=== PATIENT | female | born 2000 | race Caucasian/White ===

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

== ENCOUNTER → 2018-02-02 | Outpatient (REF) | payer BC | LOC: M LAB REF 17:06 | DX: J02.9 Acute pharyngitis, unspecified (principal) | CPT/HCPCS: 87081 ==

== ENCOUNTER → 2018-07-20 | Outpatient (CLI) | payer BC | LOC: M RAD 09:53 | DX: R10.2 Pelvic and perineal pain (principal) | CPT/HCPCS: 76856 ==

== ENCOUNTER 2019-01-18 14:55 | Emergency (ER) | payer BC ==
[~2019-01-18] VITALS: Ht 167.6 cm; Wt 98.9 kg
[~2019-01-18 14:55] MED LIST changes: -ACET50TA PO; +HYDR1SOL PO; +HYDROCODONE-ACETAMN; +IBUP1TAB7 PO; +LIDVISCBTL; +MAPA500T2 PO; +SERT-155; +ZOFR4TAB14 PO; +ZOLO25TA PO; +ZOLO50TA PO
[2019-01-18] MEDS ORDERED: NORL0.35 PO (15:01)
[2019-01-18] MEDS ORDERED: ONDANSETRON 4MG/2ML VIAL (J2405) IV ONE (15:30)
[2019-01-18] MEDS ORDERED: NS 1,000 ML IV ONE (15:30)
[2019-01-18] MEDS ORDERED: KETOROLAC 30 MG/ML VIAL (J1885) IV ONE (15:30)
[2019-01-18 16:03] LABS: BASO # 0.1 10^3/uL (0.0-0.2); BASO % 0.7 % (0.0-1.0); EOS % 0.3 % (0.0-3.0); HEMOGLOBIN 13.5 g/dl (12.0-15.5); LYMPH # 2.9 10^3/uL (1.5-6.5); LYMPH % 33.4 % (24.0-44.0); MEAN CORPUSCULAR HEMOGLOBIN 30.7 pg (27.0-33.0); MEAN CORPUSCULAR HGB CONC 33.8 g/dl (32.0-36.5); MEAN CORPUSCULAR VOLUME 90.9 fl (80.0-96.0); MONO # 0.7 10^3/uL (0.0-0.8); MONO % 7.9 % (0.0-5.0); NEUTROPHILS # 4.9 10^3/uL (1.8-7.7); NEUTROPHILS % 57.5 % (36.0-66.0); PLATELET COUNT, AUTOMATED 262 10^3/uL (150-450); WHITE BLOOD COUNT 8.6 10^3/uL (4.0-10.0)
[2019-01-18 16:44] LABS: HCG, SERUM QUALITATIVE NEGATIVE (NEGATIVE)
[2019-01-18 16:46] LABS: ALT/SGPT 20 U/L (12-78); BILIRUBIN,DIRECT 0.1 MG/DL (0.0-0.2); BILIRUBIN,TOTAL 0.4 MG/DL (0.2-1.0); BLOOD UREA NITROGEN 13 MG/DL (7-18); CARBON DIOXIDE LEVEL 23 MEQ/L (21-32); CHLORIDE LEVEL 108 MEQ/L (98-107); CREATININE FOR GFR 0.81 MG/DL (0.55-1.30); GLUCOSE, FASTING 79 MG/DL (70-100); LIPASE 106 U/L (73-393); POTASSIUM SERUM 4.1 MEQ/L (3.5-5.1); SODIUM LEVEL 139 MEQ/L (136-145); TOTAL PROTEIN 7.5 GM/DL (6.4-8.2)
[2019-01-18] MEDS ORDERED: ISOVUE-370 76% 100ML VIAL (Q9967) As Ordered ONE (17:20)
[2019-01-18] MEDS: GASTROGRAFIN SOLUTION 30ML PO SCH ×2 (17:36→18:13)
--- NOTE | 2019-01-18 19:42 | REPVR ---
EXAM: CT Abdomen and Pelvis With Contrast EXAM DATE/TIME: 01/18/2019 6:49 PM CLINICAL HISTORY: 18 years old, female; Pain; Abdominal pain; Generalized; Additional info: Rlq, ruq, luq pain TECHNIQUE: Axial computed tomography images of the abdomen and pelvis with intravenous contrast. All CT scans at this facility use at least one of these dose optimization techniques: automated exposure control; mA and/or kV adjustment per patient size (includes targeted exams where dose is matched to clinical indication); or iterative reconstruction. Coronal and sagittal reformatted images were created and reviewed. CONTRAST: Contrast Material: 100 ml of ISOVUE 370; Contrast Route: IV COMPARISON: US PELVIC NON-OB COMPLETE 07/20/2018 10:06 AM FINDINGS: Lower thorax: Clear appearing lung bases. ABDOMEN: Liver: Normal appearing liver. Gallbladder and bile ducts: Normal gallbladder. Normal common bile duct. Pancreas: Normal pancreas. Spleen: Normal appearing spleen. Adrenals: Normal adrenal glands. Kidneys and ureters: There is enhancement of both kidneys. There is no evidence of hydronephrosis. Stomach and bowel: The cecum is in the right pelvis. There is contrast throughout the small bowel with no evidence of obstruction. Appendix: The appendix appears within the range of normal. PELVIS: Bladder: There is a small amount of urine in the urinary bladder. Reproductive: Normal appearing left ovary. 2 cm round enhancing structure anterior right uterus probably a hemorrhagic cyst. This may be responsible for the small amount of fluid through the pelvis. ABDOMEN and PELVIS: Intraperitoneal space: There is no evidence of pneumoperitoneum. There is a small amount of free fluid in the pelvis. There is no evidence of free fluid in the abdomen. Bones/joints: There is no evidence of significant bony abnormality. Soft tissues: Unremarkable. Vasculature: There is opacification of the SMV. There is opacification of the SMA. There is opacification of the aorta and the aorta is normal in size. Lymph nodes: There is no evidence of lymphadenopathy. IMPRESSION: 2 cm round enhancing structure right adnexa probably an enhancing hemorrhagic cyst/corpus luteum. Small amount of fluid through the pelvis greater on the right is probably from bleeding/leaking of the hemorrhagic corpus luteum cyst. Electronically signed by: Acosta Cannon On 01/18/2019 19:42:02 PM
[2019-01-18 20:30] VITALS: BP 131/74
== END 2019-01-18 20:33 | disposition home or self-care (01) ==
LOC: M ED 14:55
DX: N83.291 Other ovarian cyst, right side (principal); Z91.048 Other nonmedicinal substance allergy status
CPT/HCPCS: 74177; 80048; 80076; 81001; 83690; 84703; 85025; 87086; 96361; 96374; 96375; 99284; J1885; J2405; Q9963; Q9967

== ENCOUNTER 2019-01-31 06:18 | Day surgery (SDC) | payer BC ==
[~2019-01-31] VITALS: Ht 167.6 cm; Wt 97.7 kg
[~2019-01-31 06:18] MED LIST changes: +NORL0.35 PO
[2019-01-31 06:59] LABS: BASO # 0.1 10^3/uL (0.0-0.2); BASO % 0.8 % (0.0-1.0); EOS % 0.5 % (0.0-3.0); HEMATOCRIT 39.9 % (36.0-47.0); HEMOGLOBIN 13.5 g/dl (12.0-15.5); LYMPH # 1.9 10^3/uL (1.5-6.5); LYMPH % 30.7 % (24.0-44.0); MEAN CORPUSCULAR HEMOGLOBIN 30.8 pg (27.0-33.0); MEAN CORPUSCULAR HGB CONC 33.8 g/dl (32.0-36.5); MEAN CORPUSCULAR VOLUME 91.1 fl (80.0-96.0); MONO # 0.5 10^3/uL (0.0-0.8); NEUTROPHILS # 3.7 10^3/uL (1.8-7.7); NEUTROPHILS % 59.8 % (36.0-66.0); PLATELET COUNT, AUTOMATED 271 10^3/uL (150-450); RED BLOOD COUNT 4.38 10^6/uL (4.00-5.40); WHITE BLOOD COUNT 6.2 10^3/uL (4.0-10.0)
[2019-01-31] MEDS ORDERED: NS 1,000 ML IV ONE (09:00)
--- NOTE | 2019-01-31 09:32 | REP ---
EMERGENCY FIRST TRIMESTER OBSTETRIC SONOGRAPHY: HISTORY: Vaginal bleeding. FINDINGS: Transabdominal and transvaginal scanning are performed. There is an ectopic gestational sac adjacent to the left ovary in the left adnexa. There is a yolk sac and a 2 mm crown-rump length embryonic pole. heart motion was observed and recorded 95 beats per minute. The crown-rump length corresponds with a 7-xgee-9-day gestational age estimate. There is a 1.8 cm cyst in the maternal right ovary. The uterus is empty and normal in size . There is no evidence of free cul-de-sac fluid. IMPRESSION: Living (unruptured) ectopic adjacent to the maternal left ovary. No free fluid. A normal-sized empty uterus. 1.8 cm follicle cyst right ovary. Electronically Signed by Roger Diaz MD 01/31/2019 09:49 A
[2019-01-31 09:36] LABS: CHLAMYDIA DNA AMPLIFICATION POSITIVE (NEGATIVE); GC DNA AMPLIFICATION NEGATIVE (NEGATIVE)
[2019-01-31] MEDS ORDERED: BUPIVACAINE HCL 0.25% 30 ML VIAL As Ordered ONE (10:37)
[2019-01-31] MEDS ORDERED: fentaNYL 250 MCG/5 ML INJECTION (J3010) As Ordered ONE (10:55)
[2019-01-31] MEDS ORDERED: ONDANSETRON 4MG/2ML VIAL (J2405) As Ordered ONE (10:55)
[2019-01-31] MEDS ORDERED: dexameTHASONE 4 MG/ML 1ML VIAL (J1100) As Ordered ONE (10:55)
[2019-01-31] MEDS ORDERED: ROCURONIUM BROMIDE 50 MG/5 ML VIAL As Ordered ONE (10:55)
[2019-01-31] MEDS ORDERED: LIDOCAINE 2% INJ 100 MG/5 ML SDV (FOR ANES.) As Ordered ONE (10:55)
[2019-01-31] MEDS ORDERED: PROPOFOL 200 MG/20 ML VIAL As Ordered ONE (10:55)
[2019-01-31] MEDS ORDERED: MIDAZOLAM INJ 2 MG/2 ML VIAL (J2250) As Ordered ONE (10:56)
[2019-01-31] MEDS ORDERED: METOCLOPRAMIDE INJ 10MG/2ML VIAL (J2765) As Ordered ONE (11:48)
[2019-01-31] MEDS ORDERED: ACETAMINOPHEN 1000MG 100ML IV BTL (OFIRMEV) (J0131 PER 10MG) As Ordered ONE (11:50)
[2019-01-31] MEDS ORDERED: SUGAMMADEX SODIUM 500 MG/5 ML VIAL (BRIDION) As Ordered ONE (12:15)
[2019-01-31] MEDS ORDERED: KETOROLAC 60 MG/2 ML VIAL (J1885) As Ordered ONE (12:29)
[2019-01-31] MEDS ORDERED: HYDROmorphone HCL 2 MG/ML 1ML VIAL (J1170) As Ordered ONE (12:34)
[2019-01-31] MEDS ORDERED: fentaNYL 100 MCG/2 ML INJECTION (J3010) IV PRN (13:00)
[2019-01-31] MEDS ORDERED: LR 1,000 ML IV SCH ×2 (13:00→16:58)
[2019-01-31] MEDS ORDERED: oxyCODONE 5MG TAB As Ordered ONE (13:12)
[2019-01-31] MEDS ORDERED: oxyCODONE 5MG TAB PO PRN (13:30)
[2019-01-31] MEDS ORDERED: PERCOCET PO (14:57)
[2019-01-31] MEDS ORDERED: IBUP80TA PO (14:58)
[2019-01-31] MEDS ORDERED: COLA100C5 PO (14:59)
[2019-01-31] MEDS ORDERED: PERCOCET 5MG/325MG TAB PO PRN (17:00)
[2019-01-31] MEDS ORDERED: ONDANSETRON 4MG/2ML VIAL (J2405) IV PRN (17:00)
[2019-01-31] MEDS ORDERED: PROMETHAZINE INJ 25 MG/ML VIAL (J2550) IV PRN (17:00)
[2019-01-31 17:15] VITALS: BP 120/67
[2019-01-31] MEDS: PERCOCET 5MG/325MG TAB PO PRN (17:56)
[2019-01-31] MEDS ORDERED: KETOROLAC 30 MG/ML VIAL (J1885) IV SCH (19:00)
[2019-01-31 20:00] VITALS: BP 133/63
[2019-01-31] MEDS: DOCUSATE SODIUM 100 MG CAP PO SCH (21:48)
[2019-02-01] VITALS: BP 125/56
[2019-02-01 03:57] VITALS: BP 118/57
--- NOTE | 2019-02-01 06:54 | RO ---
DATE OF PROCEDURE: 01/31/2019 PREOPERATIVE DIAGNOSIS: Left ectopic . POSTOPERATIVE DIAGNOSIS: Left ectopic . PROCEDURE PERFORMED: Laparoscopic left salpingectomy. SURGEON: Dr. Miguel Iyer DO ENDBAND SIZER: AMINAH Bonilla student. ANESTHESIA: General endotracheal. SPECIMENS TO PATHOLOGY: Left fallopian tube with ectopic . ESTIMATED BLOOD LOSS: 20-50 mL. FLUIDS REPLACED: 900 mL lactated Ringer's. DRAINS: Olson catheter with 400 mL urine output. COMPLICATIONS: None. PREOPERATIVE ANTIBIOTICS: None indicated. INTRAOPERATIVE FINDINGS: Dilated left fallopian tubal mass, small amount of hemoperitoneum in the posterior cul-de-sac approximately 50 mL. INDICATION: The patient is a 18-year-old, (G) 2, para (P) 1-0-1-1, with a diagnosis of left ectopic per first trimester ultrasound earlier today. Given the presence of cardiac activity, the decision was made to proceed with surgical management instead of medical management. DESCRIPTION OF PROCEDURE: The patient was counseled and consented on the risks, benefits, indications, and alternatives of the procedure. Informed consent was obtained. She was taken to the operating room with an IV running and placed on the operating table in the dorsal supine position. She was placed in the low lithotomy position. She was prepared and draped in normal sterile fashion. A time-out was performed per protocol. A Olson catheter was placed under sterile conditions. A sterile speculum was placed with good visualization of the cervix. The anterior lip of the cervix was grasped with a single-tooth tenaculum and and a sponge stick was placed into the vagina for uterine manipulation. The sterile speculum was removed. A glove switch was performed. Attention was turned to the abdomen. Five mL of 0.25% of Marcaine were injected into the umbilicus. A 10 mm umbilical incision was made with 11 blade. Through this incision, a Veress needle was placed into the intraperitoneal cavity. Intraperitoneal placement was confirmed with ease of flow of normal saline, a negative return upon aspiration and a positive drop test. The opening pressure was 3 mmHg. The abdomen was insufflated with 2.5 liters of gas. The Veress needle was removed. The size 11 mm [place] laparoscopic trocar was placed through this incision into the intraperitoneal cavity without any difficulty. No incidental injury or bleeding was noted. The patient was placed in steep Trendelenburg. Two additional laparoscopic port sites were placed through 5 mm incisions on the left lower abdomen. The laparoscopic cannulas were placed under direct laparoscopic visualization without any difficulty. Attention was turned to the left fallopian tube. The left fallopian tube was bleeding, indicating the beginning of a ruptured ectopic . The fallopian tube was followed out to the fimbriated end. The fimbriated end was grasped and elevated. The underlying mesosalpinx/broad ligament was sequentially clamped, coagulated and transected with the 5 mm LigaSure device until the level of the cornu was reached. At the level of cornu, the fallopian tube was perpendicularly clamped, coagulated and transected, thus amputating the left fallopian tube with the ectopic intact. The left fallopian tube with the ectopic was placed in the anterior cul-de-sac. The EndoCatch bag was used to remove the specimen without any difficulty. The left adnexa was noted to be completely hemostatic. Of note, there was a right ovarian cyst that was physiologic in size. Decision was made to expectantly manage this right ovarian cyst given that she has already lost her left fallopian tube and I did not want to create any adhesions on the right side. The right ovarian cyst was smooth walled and appearing physiologic. The size 11 mm [place] laparoscopic cannula was removed and replaced with the Yuriy-Adam hub. The Yuriy-Adam technique was used close the fascia with #0 Vicryl without any difficulty. The gas was then released from the abdomen. The two remaining laparoscopic cannulas were removed. The skin incisions were closed with #4-0 Monocryl in subcuticular fashion and reinforced with Dermabond. All instruments were removed from the vagina to include the single-tooth tenaculum and sponge stick. All instruments were accounted for. Sponge, lap, needle and instrument counts were correct times two and per protocol. The Olson catheter was removed. Minimal vaginal bleeding was noted. The tenaculum sites were hemostatic. The patient tolerated the entire procedure well. She was transferred to the postanesthesia care unit (PACU) in good stable condition. LEENA
[2019-02-01 07:48] LABS: BASO % 0.1 % (0.0-1.0); HEMOGLOBIN 11.6 g/dl (12.0-15.5); LYMPH % 19.4 % (24.0-44.0); MEAN CORPUSCULAR HEMOGLOBIN 30.2 pg (27.0-33.0); MEAN CORPUSCULAR HGB CONC 33.1 g/dl (32.0-36.5); MEAN CORPUSCULAR VOLUME 91.1 fl (80.0-96.0); MONO # 0.8 10^3/uL (0.0-0.8); MONO % 7.4 % (0.0-5.0); NEUTROPHILS # 7.4 10^3/uL (1.8-7.7); NEUTROPHILS % 72.8 % (36.0-66.0); PLATELET COUNT, AUTOMATED 276 10^3/uL (150-450); RED BLOOD COUNT 3.84 10^6/uL (4.00-5.40); WHITE BLOOD COUNT 10.2 10^3/uL (4.0-10.0)
[2019-02-01 08:00] VITALS: BP 139/59
[2019-02-01] MEDS: DOCUSATE SODIUM 100 MG CAP PO SCH (08:50)
[2019-02-01] MEDS: PERCOCET 5MG/325MG TAB PO PRN (08:50)
[2019-02-01] MEDS ORDERED: IBUPROFEN 800 MG TAB PO SCH (09:00)
== END 2019-02-01 10:35 | disposition home or self-care (01) ==
LOC: M ED 06:18 → M SDC 10:00 → M ED 10:29 → M PED 17:20 → M SDC 02-01 10:35
PROVIDERS: ATTEND Obstetrics & Gynecology
DX: O00.102 Left tubal pregnancy without intrauterine pregnancy (principal); Z3A.00 Weeks of gestation of pregnancy not specified
CPT/HCPCS: 36415; 59121; 76801; 76817; 81001; 84702; 85025; 86850; 86900; 86901; 87210; 87491; 87591; 88305; 93976; 96374; 99284; J0131; J1100; J1170; J1885; J2250; J2405; J2765; J3010

== ENCOUNTER → 2019-04-09 | Outpatient (REF) | payer BC ==
[~2019-04-09] MED LIST changes: +COLA100C5 PO; +IBUP600T42 PO; -IBUP60TA PO; +IBUP80TA PO; +PERCOCET PO
== END ==
LOC: M LAB REF 09:53
PROVIDERS: ATTEND Physician Assistant
DX: R30.0 Dysuria (principal)

== ENCOUNTER → 2019-04-27 | Outpatient (REF) | payer BC ==
[2019-04-27 14:32] LABS: CHLAMYDIA DNA AMPLIFICATION NEGATIVE (NEGATIVE); GC DNA AMPLIFICATION NEGATIVE (NEGATIVE)
== END ==
LOC: M LAB REF 12:36
PROVIDERS: ATTEND Physician Assistant
DX: R30.0 Dysuria (principal)

== ENCOUNTER → 2019-10-28 | Outpatient (CLI) | payer BC, OTHER ==
[~2019-10-28] MED LIST changes: -SERT-155; +SERT50TA29
--- NOTE | 2019-10-28 13:42 | REP ---
Obstetric sonography: History: Supervision of for anatomy. Findings: Scanning through the gravid uterus demonstrates a viable single intrauterine gestation in a cephalic lie. motion is observed and heart rate is recorded at 156 beats per minute. A posterior placenta is seen without evidence of previa. Amniotic fluid is subjectively normal. No extrauterine abnormality is observed. No abnormality is noted. anatomic survey was inhibited to some degree by early gestational age and lie. The face and profile, four-chamber heart and outflow tract views, and lower extremity views were less than optimally seen today. The following additional anatomic structures are identified in the fetus and felt to be unremarkable: cranium, choroid plexus, cavum, cerebellum and posterior fossa, diaphragm, left-sided stomach, abdominal wall cord insertion, three-vessel umbilical cord, kidneys and bladder, spine, upper extremities. Biometry chart: BPD 3.6 cm = 17 weeks 0 days Head circumference 13.9 cm = 17 weeks 2 days Abdominal circumference 11.2 cm = 17 weeks 0 days Femur length 2.5 cm = 17 weeks 5 days Humeral length 2.4 cm = 17 weeks 3 days HC/AC ratio normal 1.24. Cephalic index normal 0.69. Estimated weight 188 grams/0 pounds 6 ounces/45th percentile for 17 weeks 2 days. Impression: Viable single intrauterine gestation at 17 weeks 2 days by today's composite sonographic criteria. SUNSHINE by today's sonography April 04, 2020. anatomic survey is less than complete as above. Electronically Signed by Roger Diaz MD 10/28/2019 01:55 P
== END ==
LOC: M RAD 11:27
PROVIDERS: ATTEND Advanced Practice Midwife
DX: Z34.82 Encounter for supervision of other normal pregnancy, second trimester (principal); Z3A.17 17 weeks gestation of pregnancy

== ENCOUNTER → 2019-11-17 | Outpatient (CLI) | payer BC, OTHER ==
--- NOTE | 2019-11-18 02:38 | REP ---
Clinical: Anatomical evaluation. Comparison: 10/28/2019 . Findings: Examination demonstrates a single live intrauterine in transverse (head to maternal right) presentation. motion is identified by technologist. Placenta is noted posterior/fundal and grade zero without evidence for placenta previa or abruption. Amniotic fluid volume is normal. Cervix measures 4.0 cm in length and appears closed. No evidence for nuchal cord. Gestational age by LMP 20 weeks 6 days with SUNSHINE 03/30/2020 . Gestational age by current measurements 20 weeks 4 days with SUNSHINE 04/01/2020 . FHR equals 147 beats per minute. Estimated weight 382 grams ( 40 that percentile). Anatomical assessment demonstrates normal structures including cranium, choroid plexus, cavum, cerebellum/posterior fossa, facial features, lungs, diaphragm, stomach, cord insertion/three-vessel cord, kidneys/bladder, and extremities. Continued limited evaluation of the heart and ventricular outflow tracts. Impression: 1. A live intrauterine in transverse lie demonstrating appropriate interval growth. 2. Continued limited evaluation of the heart and ventricular outflow tracts. Remainder of the anatomical assessment is complete and normal. Electronically Signed by Efra Motley MD 11/18/2019 02:30 A
== END ==
LOC: M RAD 10:32
PROVIDERS: ATTEND Advanced Practice Midwife
DX: O32.2XX0 Maternal care for transverse and oblique lie, not applicable or unspecified (principal); Z36.89 Encounter for other specified antenatal screening; Z3A.20 20 weeks gestation of pregnancy

== ENCOUNTER → 2019-12-22 | Outpatient (CLI) | payer BC, OTHER ==
--- NOTE | 2019-12-22 15:07 | REP ---
Clinical: Anatomical evaluation. Comparison: 11/17/2019. . Findings: Examination demonstrates a single live intrauterine in cephalic presentation. motion is identified by technologist. Placenta is noted posterior and grade I without evidence for placenta previa or abruption. Amniotic fluid volume is normal. Cervix measures 3.5 cm in length and appears closed. No evidence for nuchal cord. Gestational age by LMP 25 weeks 6 days with SUNSHINE 03/30/2020 . Gestational age by first ultrasound 25 weeks 1 day with SUNSHINE at 04/04/2020 . FHR equals 134 beats per minute. Estimated weight 820 grams (54th percentile). Anatomical assessment demonstrates normal structures including cranium, facial features, lungs, four-chamber heart/ventricular outflow tracts, diaphragm, stomach, cord insertion/three-vessel cord, and kidneys/bladder. Impression: Single live intrauterine in cephalic presentation demonstrating appropriate interval growth. In conjunction with prior examination anatomical assessment is complete and normal.
== END ==
LOC: M WHC 13:59
PROVIDERS: ATTEND Advanced Practice Midwife
DX: Z34.82 Encounter for supervision of other normal pregnancy, second trimester (principal); Z36.2 Encounter for other antenatal screening follow-up; Z3A.25 25 weeks gestation of pregnancy

== ENCOUNTER → 2020-03-01 | Outpatient (REF) | payer BC, MEDICAID ==
[2020-03-01 14:13] LABS: ALBUMIN 2.7 GM/DL (3.2-5.2); ALT/SGPT 16 U/L (12-78); BILIRUBIN,TOTAL 0.6 MG/DL (0.2-1.0); BLOOD UREA NITROGEN 7 MG/DL (7-18); CALCIUM LEVEL 9.1 MG/DL (8.5-10.1); CARBON DIOXIDE LEVEL 23 MEQ/L (21-32); CHLORIDE LEVEL 106 MEQ/L (98-107); CREATININE FOR GFR 0.51 MG/DL (0.55-1.30); GLOMERULAR FILTRATION RATE > 60.0 (>60); GLUCOSE, FASTING 77 MG/DL (70-100); POTASSIUM SERUM 4.1 MEQ/L (3.5-5.1); SODIUM LEVEL 136 MEQ/L (136-145); TOTAL PROTEIN 6.7 GM/DL (6.4-8.2)
[2020-03-01 14:15] LABS: HEMATOCRIT 37.2 % (36.0-47.0); HEMOGLOBIN 12.2 g/dl (12.0-15.5); MEAN CORPUSCULAR HEMOGLOBIN 29.3 pg (27.0-33.0); MEAN CORPUSCULAR HGB CONC 32.8 g/dl (32.0-36.5); MEAN CORPUSCULAR VOLUME 89.2 fl (80.0-96.0); PLATELET COUNT, AUTOMATED 226 10^3/uL (150-450); RED BLOOD COUNT 4.17 10^6/uL (4.00-5.40); WHITE BLOOD COUNT 7.8 10^3/uL (4.0-10.0)
== END ==
LOC: M PLALAB 11:30
PROVIDERS: ATTEND Obstetrics & Gynecology
DX: L29.9 Pruritus, unspecified (principal); Z3A.35 35 weeks gestation of pregnancy

== ENCOUNTER 2020-03-26 07:48 | Inpatient (IN) | payer BC, MEDICAID ==
[2020-03-26] VITALS (42 sets, daily range): BP systolic 90–128; BP diastolic 50–79
[~2020-03-26] VITALS: Ht 167.6 cm; Wt 106.8 kg
[2020-03-26] MEDS ORDERED: PREN29TA4 PO (08:02)
[2020-03-26] MEDS ORDERED: LACTATED RINGER'S 1000 ML IV STA (08:27)
[2020-03-26] MEDS ORDERED: LR 1,000 ML IV SCH (08:35)
[2020-03-26] MEDS ORDERED: OXYTOCIN DRIP 30 UNITS in IV 1 EA IV SCH ×2 (08:45→18:03)
[2020-03-26 09:02] LABS: HEMATOCRIT 34.6 % (36.0-47.0); HEMOGLOBIN 11.4 g/dl (12.0-15.5); MEAN CORPUSCULAR HEMOGLOBIN 29.5 pg (27.0-33.0); MEAN CORPUSCULAR HGB CONC 32.9 g/dl (32.0-36.5); MEAN CORPUSCULAR VOLUME 89.6 fl (80.0-96.0); PLATELET COUNT, AUTOMATED 201 10^3/uL (150-450); RED BLOOD COUNT 3.86 10^6/uL (4.00-5.40); WHITE BLOOD COUNT 7.9 10^3/uL (4.0-10.0)
--- NOTE | 2020-03-26 09:18 | HPEPDOC ---
Obstetrical History & Physical General Date of Admission March 26, 2020 at 07:48 Primary Care Physician: MARY JO FULLER CNM History of Present Illness Patient is a 19-year-old female who is a at 39.3 weeks gestation with an SUNSHINE of 03/30/20 based off of her LMP and consistent with her first trimester ultrasound. She initiated care in her first trimeter with [facility]. Her has been complicated by obesity. She failed her early 1 hour GTT and passed her 3 hour GTT. She also passed her third trimester 3 hour GTT. She presents for an elective induction of labor. She reports active movement and occasional contractions. She denies vaginal bleeding or leaking of fluid. Chief Complaint: Induction of labor Information Provided By: Patient Age: 19 : 3 Term: 1 Pre-term: 0 Abortions: 1 Livin Care Care: Good Care Dating Final EDC: March 30, 2020 Final EDC by: LMP LMP: Jun 24, 2019 EGA at Admission: 39.3 Antepartum Course Diagnos(e)s obesity Height (inches): 66 Pre- weight (lbs.): 209 Admission Weight (lbs.): 235 Change in Weight (lbs.): 26 Past Medical History Past Obstetrical History : Date of Delivery: Apr 11, 2016 Gestation: 38 Type of Delivery: Spontaneous Vaginal Del. Sex of : Male Complications: Yes (GHTN) SENIOR OUTSIDE SALES REPRESENTATIVE History: Ectopic , History of STD (clamydia) Past Medical History Surgical History: Tonsilectomy, Other (salpingostomy-tubal ) Family History Significant Family History: No pertinent family hx Social History Marital Status: Single Family situation: Spouse/partner home Psychosocial History: Anxiety * Smoker: non-smoker Alcohol: Denies Drugs: denies Abuse Violence Screening Have you been hit/kicked/slapp: No Have you been sexually assault: No Allergies Coded Allergies: TAPE (Verified Adverse Reaction, Intermediate, red and itching, 02/16/18) Medications Scheduled Prenat 115/Iron Fum/Folic/Dss ( 19 Tablet) 1 Each Tablet, 1 TAB PO DAILY Physical Examination Physical Examination GENERAL: Alert and oriented times three. BREAST: . ABDOMEN: Gravid and non-tender to touch. FETUS: Is vertex (VTX) by sterile vaginal examination (SVE), fetus is vertex (VTX) by Zackary. HEART RATE: Regular rate and rhythm. LUNGS: Clear to auscultation (CTA). EXTREMITIES: Generalized edema. No clonus. Deep tendon reflexes (DTRs) + 2. Laboratory Data 24H LABS Laboratory Tests 2 03/26/20 08:08: Serology Scanned Report Hepatitis B Testing Urine Culture: No Growth Pertinent Laboratoy Data Blood Type: O+ RBC Antibody Screen: Negative HIV: Negative Hepatitis B: Negative Hepatitis C: Negative Rapid Plasma Reagin: Nonreactive Rubella: Immune Chlamydia/Gonorrhea: Negative Group B Streptococcus: Negative Diag/Inter Therapy Normal 3 hour GTT. Vaginal Examination Dilation: 4 cm Effacement: 80% Station: -1 Cervical Consistency: Soft Cervical Position: Anterior Presentation: Cephalic presentation Position: Vertex (occiput) Assessment Heart Rate (FHR): 130 Variability: Moderate Accelerations: Positive Decelerations: None Tocometer Contractions: Yes Frequency: irregular Multi-drug resistant Organism: No history of MDRO Assessment/Plan Assessment IUP at 39.3 weeks gestation elective IOL GBS negative Category I FHR tracing Plan Admit to L&D. OOB ad janelle. Diet: clears. Group B Streptococcus (GBS) negative. Labs and intravenous (IV) per unit protocol. Counseled on Pitocin for induction of labor. Anesthesia consult per patient's request. Lactated Ringers (LR): Bolus 800 mL prior to epidural. Anticipate cervical change and . C-S as appropriate. MARY JO FULLER CNM March 26, 2020 09:18
--- NOTE | 2020-03-26 13:43 | IPNPDOC ---
Obstetrical Progress Note Date of Service March 26, 2020 Subjective Patient reports she notices vaginal pressure with each contraction but is coping well. Objective Vital Signs Date Time Temp Pulse Resp B/P (MAP) Pulse Ox O2 Delivery O2 Flow Rate FiO2 03/26/20 13:30 79 18 106/57 (73) 03/26/20 12:29 98.1 03/26/20 08:09 98 Assessment Heart Rate (FHR): 120 Variability: Moderate Accelerations: Positive Decelerations: None Heart Rate Tracing: Category I Tocometer Contractions: Yes Frequency: regular, every 1-5 min. Sterile Vaginal Examination Dilation: 4 cm (4-5 cm) Effacement (%): 80% Station: -1 Cervical Consistency: Soft Cervical Position: Anterior Postion/Presentation: Cephalic presentation Assessment and Plan Status: Reassuring Group B Streptococcus: Negative Anticipate: Vaginal Delivery Additional Comments IV Pitocin is at 8 mu/min. MARY JO FULLER CNM March 26, 2020 13:43
[2020-03-26] MEDS ORDERED: FENTANYL 2MCG/ML ROPIVACAINE 0.2% IN 0.9% NACL 100ML IVBAG As Ordered ONE (13:56)
[2020-03-26] MEDS ORDERED: diphenhydrAMINE 50MG/ML VIAL (J1200) IV PRN (15:00)
[2020-03-26] MEDS ORDERED: REFRIGERATOR IV KEYS XX PRN (15:00)
[2020-03-26] MEDS ORDERED: EPIDURAL COMMENT XX SCH (15:00)
[2020-03-26] MEDS ORDERED: FENTANYL/ROPIVACAINE/NACL BAG 100 ML EPIDURAL SCH (15:00)
[2020-03-26] MEDS ORDERED: LACTATED RINGER'S 1000 ML IV PRN (15:00)
[2020-03-26] MEDS ORDERED: NALOXONE INJ 0.4MG/1ML VIAL (J2310 PER 1MG) IV PRN (15:00)
[2020-03-26] MEDS ORDERED: ONDANSETRON 4MG/2ML VIAL IV PRN (15:00)
[2020-03-26] MEDS ORDERED: EPIDURAL/PCA KEYS XX PRN (15:00)
[2020-03-26] MEDS: ePHEDrine SULFATE 25 MG/5 ML(5MG/ML) SYRINGE IV PRN ×3 (16:05→16:19)
[2020-03-26] MEDS ORDERED: ACETAMINOPHEN 500 MG TAB PO PRN (18:15)
[2020-03-26] MEDS ORDERED: DIBUCAINE 1% OINTMENT 30GM TOP PRN (18:15)
[2020-03-26] MEDS ORDERED: RHOGAM 300 MCG (1500 IU) INJ (J2790) IM SCH (18:15)
[2020-03-26] MEDS ORDERED: MEASLES,MUMPS,RUBELLA VACCINE INJ (MMR-II) (90707) SC SCH (18:15)
[2020-03-26] MEDS ORDERED: DOCUSATE SODIUM 100 MG CAP PO PRN (18:15)
[2020-03-26] MEDS ORDERED: ACETAMINOPHEN TAB 650MG DOSE (2X325MG) PO PRN (18:15)
[2020-03-26] MEDS ORDERED: METHYLERGONOVINE MALEATE 0.2 MG TAB PO PRN (18:15)
[2020-03-26] MEDS ORDERED: ANUSOL HC CREAM 30GM TOP PRN (18:15)
--- NOTE | 2020-03-26 20:03 | DNPDOC ---
[facility] Delivery Note Delivery Note DATE OF DELIVERY: 03/26/20 at 1740 PREDELIVERY DIAGNOSIS: 39-3/7 weeks' gestation and labor. POST DELIVERY DIAGNOSIS: Delivered. PROCEDURE: Spontaneous vaginal delivery. BUILDING CODE ADMINISTRATOR: Mary Jo Justin CNM, ARTURO ANESTHESIA: epidural. ESTIMATED BLOOD LOSS: 400 mL. FINDINGS: 8 pounds; 3640 grams; female , Score 8/9, nuchal cord times 1 loose, left compound hand. DELIVERY SUMMARY: Patient is a 19-year-old female who is now a who presented for an elective induction of labor. She received IV Pitocin for induction. The patient requested and epidural for pain management. She progressed to fully dilated at 1724. She pushed to a living female in the OA position with restitution to ROT at 1740. A compound hand was noted with delivery of the head. The anterior shoulder delivered with ease and the corpus immediately followed. The baby was placed on the maternal abdomen active and crying with stimulation. The cord was clamped after pulsation ceased and cut by the FOB. A 3-vessel cord was noted. The placenta delivered spontaneously and intact at 1747. Uterine hemostasis was achieved via rapid infusion of IV Pitocin and fundal massage. The vagina, cervix, and perineum was inspected and found to have a perineal abrasion. Both mom and baby are both in stable condition. They are naming her Caralee. All counts of instrument and sponges are correct. MARY JO JUSTIN CNM March 26, 2020 20:03
[2020-03-26] MEDS: IBUPROFEN 800 MG TAB PO PRN (20:32)
[2020-03-27] MEDS: IBUPROFEN 800 MG TAB PO PRN ×2 (04:28→23:40)
[2020-03-27 06:09] VITALS: BP 96/51
[2020-03-27] MEDS: PRENATAL VITAMINS CHEWABLE TABLET PO SCH (08:16)
--- NOTE | 2020-03-27 13:44 | IPNPDOC ---
Progress Note Date of Service: March 27, 2020 Day#: 1 Progress Note SUBJECT: Patient is a 19-year-old female who is now a who presented to L&D for induction of labor at 39.3 weeks gestation. She had a healthy female that weighed 8 lbs on 03/26/20 at 1740. She reports she is voiding and ambulating without any issues. She denies any current pain. OBJECTIVE: VITAL SIGNS: Within normal limits, afebrile. Alert and oriented times three. Breath sounds clear to auscultation. Heart rate: Regular rate and rhythm, no murmurs, rubs or gallops. Abdomen: Fundus firm at U-1. Soft, NTTP. Minimal lochia. ASSESSMENT: Day 1 PLAN: 1. Continue supportive nursing care. 2. Anticipate discharge to home tomorrow. VS, I&O, 24H, Fishbone Vital Signs/I&O Vital Signs Date Time Temp Pulse Resp B/P (MAP) Pulse Ox O2 Delivery O2 Flow Rate FiO2 03/27/20 08:30 16 03/27/20 06:09 98.0 73 96/51 (66) 03/26/20 14:43 98 Room Air I&O- Last 24 Hours up to 6 AM 03/27/20 06:00 Intake Total 3143 ml Output Total 1650 ml Balance 1493 ml MARY JO FULLER CNM March 27, 2020 13:44
[2020-03-27] MEDS: IBUPROFEN 600 MG TAB PO PRN (15:15)
[2020-03-27 18:00] VITALS: BP 118/60
[2020-03-28 06:25] VITALS: BP 118/64
[2020-03-28] MEDS: PRENATAL VITAMINS CHEWABLE TABLET PO SCH (08:57)
[2020-03-28] MEDS: IBUPROFEN 600 MG TAB PO PRN (11:12)
== END 2020-03-28 12:15 | disposition home or self-care (01) | DRG 560 ==
LOC: M LDI 07:48 → M OBS 20:38
PROVIDERS: ADMIT Advanced Practice Midwife; ATTEND Advanced Practice Midwife
PROC: 10E0XZZ Delivery of Products of Conception, External Approach (ICD-10-PCS; principal; 2020-03-26)
PROC: 3E033VJ Introduction of Other Hormone into Peripheral Vein, Percutaneous Approach (ICD-10-PCS; 2020-03-26)
DX: O32.6XX0 Maternal care for compound presentation, not applicable or unspecified (principal); E66.9 Obesity, unspecified; Z37.0 Single live birth; Z3A.39 39 weeks gestation of pregnancy; O99.214 Obesity complicating childbirth

== ENCOUNTER → 2020-05-15 | Outpatient (REF) | payer BC ==
[~2020-05-15] MED LIST changes: +HYDR-3715 PO; +NEXP1IMP SC; +PREN1TAB11 PO; +PREN29TA4 PO; +SERT25TA21; +VENL37.598
== END ==
LOC: M LAB REF 17:41
PROVIDERS: ATTEND Internal Medicine
DX: R10.9 Unspecified abdominal pain (principal)

== ENCOUNTER → 2020-05-24 | Outpatient (CLI) | payer BC ==
--- NOTE | 2020-05-24 10:36 | REP ---
REASON: Right upper quadrant pain. Multiple ultrasonographic images of the gallbladder show multiple echogenic foci within the gallbladder lumen which are mobile and cast acoustic shadows. There is no gallbladder wall thickening or pericholecystic edema. The common bile duct measures 4 mm in its greatest transverse dimension. The liver is within normal limits. The imaged portion of the pancreas and right kidney are within normal limits. There is no free fluid. IMPRESSION: Cholelithiasis.
== END ==
LOC: M WHC 08:58
PROVIDERS: ATTEND Internal Medicine
DX: K80.20 Calculus of gallbladder without cholecystitis without obstruction (principal)

== ENCOUNTER → 2020-08-16 | Outpatient (CLI) | payer BC, MEDICAID | LOC: M LABSMTC 09:51 | PROVIDERS: ATTEND Anesthesiology | DX: Z01.812 Encounter for preprocedural laboratory examination (principal); Z20.828 Contact with and (suspected) exposure to other viral communicable diseases | CPT/HCPCS: C9803; U0003 ==

== ENCOUNTER 2020-08-21 10:02 | Day surgery (SDC) | payer BC ==
[~2020-08-21] VITALS: Ht 167.6 cm; Wt 89.7 kg
[~2020-08-21 10:02] MED LIST changes: -HYDR-3715 PO; +LIDOCAINE 2% 100MG/5ML SDV (FOR ANES.) As Ordered ONE; +LR 1,000 ML IV ONE; +MIDAZOLAM INJ 2MG/2ML VIAL (J2250 PER 1MG) As Ordered ONE; -NEXP1IMP SC; +ONDANSETRON 4MG/2ML VIAL As Ordered ONE; +ROCURONIUM BROMIDE 50 MG/5 ML VIAL As Ordered ONE; +dexameTHASONE 4 MG/ML 1ML VIAL (J1100 PER 1MG) As Ordered ONE; +fentaNYL 250 MCG/5 ML INJECTION (J3010) As Ordered ONE; +propofoL 200 MG/20 ML VIAL As Ordered ONE
[2020-08-21] MEDS ORDERED: BUPIVACAINE HCL 0.25% 30ML VIAL As Ordered ONE ×2 (10:15→10:18)
[2020-08-21] MEDS ORDERED: NEXP1IMP SC (10:38)
[2020-08-21] MEDS ORDERED: HYDROmorphone HCL 2 MG/ML 1ML VIAL (J1170) As Ordered ONE (12:12)
[2020-08-21] MEDS ORDERED: NEOSTIGMINE 10MG/10ML VIAL (J2710 PER 0.5MG) As Ordered ONE (12:15)
[2020-08-21] MEDS ORDERED: GLYCOPYRROLATE INJ 0.2 MG/ML 2 ML VIAL As Ordered ONE (12:15)
[2020-08-21] MEDS ORDERED: propofoL 200 MG/20 ML VIAL As Ordered ONE (12:20)
[2020-08-21] MEDS ORDERED: ONDANSETRON 4MG/2ML VIAL As Ordered ONE (13:04)
[2020-08-21] MEDS ORDERED: ACETAMINOPHEN TAB 650MG DOSE (2X325MG) PO PRN (13:45)
[2020-08-21] MEDS ORDERED: LR 1,000 ML IV SCH (13:45)
[2020-08-21] MEDS ORDERED: ONDANSETRON 4MG/2ML VIAL IV PRN (13:45)
[2020-08-21] MEDS ORDERED: fentaNYL 100 MCG/2 ML INJECTION (J3010) IV PRN (13:45)
[2020-08-21] MEDS ORDERED: oxyCODONE 5MG TAB PO PRN (13:45)
[2020-08-21] MEDS ORDERED: HYDROMORPHONE HCL 0.5 MG/ 0.5 ML SYRINGE (J1170 PER 1) IV PRN (13:45)
[2020-08-21] MEDS ORDERED: IBUPROFEN 600MG TAB PO PRN (13:45)
[2020-08-21] MEDS ORDERED: NORCO, ANEXSIA 5/325MG TABLET (HYDROcodone/ACETAMINOPHEN) PO PRN (13:45)
[2020-08-21] MEDS ORDERED: METOCLOPRAMIDE INJ 10MG/2ML VIAL (J2765 PER 1) As Ordered ONE (14:39)
[2020-08-21] MEDS ORDERED: METOCLOPRAMIDE INJ 10MG/2ML VIAL (J2765 PER 1) IV ONE (14:45)
[2020-08-21] MEDS ORDERED: HYDR-3715 PO (16:05)
[2020-08-21 17:45] VITALS: BP 123/80
--- NOTE | 2020-08-22 11:04 | RO ---
DATE OF OPERATION: 08/21/2020 PREOPERATIVE DIAGNOSIS: Symptomatic gallstones. POSTOPERATIVE DIAGNOSIS: Symptomatic gallstones. PROCEDURE: Laparoscopic cholecystectomy. SURGEON: Pablo Frazier MD SMALL KICK PRESS OPERATOR: ANESTHESIA: General. INDICATIONS FOR PROCEDURE: Patient is a 19-year-old woman who had several episodes of upper abdominal pain particularly in the right upper quadrant. Evaluation included imaging that showed cholelithiasis. Her symptoms were felt to be consistent with biliary colic and she is now for a laparoscopic cholecystectomy. DESCRIPTION OPERATIVE PROCEDURE: The patient was brought to the operating room and placed on the table in a supine position. She was placed under general endotracheal anesthesia. The patients abdomen was prepped and draped in a sterile fashion. 0.25% Marcaine was infiltrated at each of the trocar sites as needed. A short transverse incision was made in the left upper quadrant and a Veress needle was inserted. After a positive hanging drop test, the abdomen was inflated with carbon dioxide gas. Once the abdomen was fully inflated, a 5 mm port was placed over a 5 mm scope and advanced through the abdominal wall without difficulty. Initial examination showed a normal-appearing liver. Visualized portions of the stomach and small and large bowel appeared normal. The gallbladder was not immediately noted. An 11 mm port was placed in the right mid abdomen just slightly above and to the right of the umbilicus. Two 5 mm ports were then placed in the right upper quadrant. The patient was tilted to a slight reverse Trendelenburg position and rolled slightly to the left. Graspers were inserted. The edge of the liver was elevated and the gallbladder was readily seen. There were a few adhesions of the omentum to the free border of the body of the gallbladder. The gallbladder appeared pale and slightly thickened but not acutely inflamed. The gallbladder was grasped and elevated. The adhesions to the gallbladder were lysed using the hook cautery. As the gallbladder was further elevated, dissection began at the gallbladder neck. The peritoneum was opened around the neck of the gallbladder. The cystic duct and cholecystic artery were both clearly identified and dissected free circumferentially. Both structures were then doubly clipped with Hemoclips and divided. The gallbladder was then dissected free from the gallbladder bed using cautery dissection, primarily using the spatula. The gallbladder was not perforated in the course of dissection. The gallbladder was placed in an Endopouch. The right upper quadrant was irrigated and inspected and there was no evidence of bleeding or bile leak. The patient was returned to a flat position. The abdomen was deflated and the trocars were all removed. The gallbladder was recovered through the 11 mm port site. To close the fascia, an approximately 3-4 cm transverse skin incision was made at this site. The subcutaneous fatty tissue was opened. The anterior rectus sheath was opened slightly and the muscle fibers spread and the posterior sheath perforation was noted. This was closed with interrupted simple sutures of 2-0 Vicryl. The anterior rectus sheath was then closed with a running suture of 2-0 Vicryl. The skin incisions were all closed with buried 4-0 Vicryl and Steri-Strips. Light dressings were applied. The patient tolerated the procedure well. There were several small angular stones palpable within the gallbladder, and the gallbladder was sent for permanent pathology. The patient was awakened in the operating room, extubated and moved to the recovery room in stable condition. LEENA
== END 2020-08-21 18:18 | disposition home or self-care (01) ==
LOC: M SDC 10:02
PROVIDERS: ATTEND Surgery
DX: K80.10 Calculus of gallbladder with chronic cholecystitis without obstruction (principal); I10 Essential (primary) hypertension; F41.9 Anxiety disorder, unspecified; G43.909 Migraine, unspecified, not intractable, without status migrainosus; Z79.899 Other long term (current) drug therapy
CPT/HCPCS: 47562; 81025; 88304; J1100; J1170; J2250; J2405; J2710; J2765; J3010

== ENCOUNTER → 2021-08-13 | Outpatient (CLI) | payer MEDICAID, OTHER ==
[~2021-08-13] MED LIST changes: +HYDR-3715 PO; -LIDOCAINE 2% 100MG/5ML SDV (FOR ANES.) As Ordered ONE; -LR 1,000 ML IV ONE; -MIDAZOLAM INJ 2MG/2ML VIAL (J2250 PER 1MG) As Ordered ONE; +NEXP1IMP SC; -ONDANSETRON 4MG/2ML VIAL As Ordered ONE; -ROCURONIUM BROMIDE 50 MG/5 ML VIAL As Ordered ONE; -dexameTHASONE 4 MG/ML 1ML VIAL (J1100 PER 1MG) As Ordered ONE; -fentaNYL 250 MCG/5 ML INJECTION (J3010) As Ordered ONE; -propofoL 200 MG/20 ML VIAL As Ordered ONE
== END ==
LOC: M PLALAB 09:48
PROVIDERS: ATTEND Advanced Practice Midwife
DX: Z87.59 Personal history of other complications of pregnancy, childbirth and the puerperium (principal)

== ENCOUNTER → 2021-08-15 | Outpatient (CLI) | payer MEDICAID, OTHER | LOC: M PLALAB 10:42 | PROVIDERS: ATTEND Advanced Practice Midwife | DX: Z87.59 Personal history of other complications of pregnancy, childbirth and the puerperium (principal) ==

== ENCOUNTER → 2021-09-24 | Outpatient (CLI) | payer MEDICAID, OTHER | LOC: M PLALAB 10:18 | PROVIDERS: ATTEND Advanced Practice Midwife | DX: Z34.90 Encounter for supervision of normal pregnancy, unspecified, unspecified trimester (principal) ==

== ENCOUNTER → 2021-09-26 | Outpatient (CLI) | payer OTHER | LOC: M PLALAB 11:11 | PROVIDERS: ATTEND Advanced Practice Midwife | DX: Z34.90 Encounter for supervision of normal pregnancy, unspecified, unspecified trimester (principal); Z3A.00 Weeks of gestation of pregnancy not specified ==

== ENCOUNTER → 2021-11-07 | Outpatient (CLI) | payer OTHER ==
[2021-11-07 13:44] LABS: HEMATOCRIT 37.9 % (36.0-47.0); HEMOGLOBIN 13.1 g/dl (12.0-15.5); MEAN CORPUSCULAR HGB CONC 34.6 g/dl (32.0-36.5); MEAN CORPUSCULAR VOLUME 89.6 fl (80.0-96.0); PLATELET COUNT, AUTOMATED 229 10^3/uL (150-450); RED BLOOD COUNT 4.23 10^6/uL (4.00-5.40); WHITE BLOOD COUNT 6.8 10^3/uL (4.0-10.0)
[2021-11-07 16:09] LABS: HEPATITIS C VIRUS ABY INDEX 0.1 INDEX (<0.8); HIV 1&2 SCREEN CENTAUR NEGATIVE (NEGATIVE)
[2021-11-07 17:05] LABS: GC DNA AMPLIFICATION NEGATIVE (NEGATIVE)
== END ==
LOC: M PLALAB 11:47
PROVIDERS: ATTEND Obstetrics & Gynecology
DX: Z34.91 Encounter for supervision of normal pregnancy, unspecified, first trimester (principal); Z36.89 Encounter for other specified antenatal screening

== ENCOUNTER → 2021-12-30 | Outpatient (CLI) | payer BC, OTHER, MEDICAID | LOC: M WHC 13:00 | PROVIDERS: ATTEND Obstetrics & Gynecology | DX: Z36.89 Encounter for other specified antenatal screening (principal); O32.1XX0 Maternal care for breech presentation, not applicable or unspecified; Z3A.19 19 weeks gestation of pregnancy ==

== ENCOUNTER → 2022-03-06 | Outpatient (CLI) | payer OTHER, MEDICAID | LOC: M WHC 12:25 | PROVIDERS: ATTEND Advanced Practice Midwife | DX: O99.810 Abnormal glucose complicating pregnancy (principal); O26.842 Uterine size-date discrepancy, second trimester; Z3A.28 28 weeks gestation of pregnancy; O32.1XX0 Maternal care for breech presentation, not applicable or unspecified ==

== ENCOUNTER → 2022-04-01 | Outpatient (CLI) | payer OTHER, MEDICAID ==
[2022-04-01 13:37] LABS: HEMATOCRIT 36.9 % (36.0-47.0); HEMOGLOBIN 12.3 g/dl (12.0-15.5); MEAN CORPUSCULAR HEMOGLOBIN 30.2 pg (27.0-33.0); MEAN CORPUSCULAR HGB CONC 33.3 g/dl (32.0-36.5); MEAN CORPUSCULAR VOLUME 90.7 fl (80.0-96.0); PLATELET COUNT, AUTOMATED 215 10^3/uL (150-450); RED BLOOD COUNT 4.07 10^6/uL (4.00-5.40); WHITE BLOOD COUNT 7.4 10^3/uL (4.0-10.0)
[2022-04-01 14:00] LABS: TOTAL PROTEIN,RANDOM URINE 9.3 MG/DL (0.0-12.0)
[2022-04-01 14:17] LABS: ALT/SGPT 12 U/L (12-78); BILIRUBIN,TOTAL 0.3 MG/DL (0.2-1.0); CREATININE FOR GFR 0.56 MG/DL (0.55-1.30); GLOMERULAR FILTRATION RATE > 60.0 (>60); LDH LACTATE DEHYDROGENASE 112 U/L (84-246); URIC ACID 3.6 MG/DL (2.6-6.0)
== END ==
LOC: M PLALAB 11:17
PROVIDERS: ATTEND Advanced Practice Midwife
DX: O13.9 Gestational [pregnancy-induced] hypertension without significant proteinuria, unspecified trimester (principal)

== ENCOUNTER → 2022-04-21 | Outpatient (REF) | payer OTHER, MEDICAID ==
[~2022-04-21] MED LIST changes: +ACET500P3 PO; +VENL37TA PO
== END ==
LOC: M SFHCWAGY 17:00
PROVIDERS: ATTEND Advanced Practice Midwife
DX: Z36.89 Encounter for other specified antenatal screening (principal); Z3A.00 Weeks of gestation of pregnancy not specified

== ENCOUNTER 2022-04-22 12:20 | Inpatient (IN) | payer OTHER, MEDICAID ==
[2022-04-22] VITALS (31 sets, daily range): BP systolic 100–151; BP diastolic 53–87
[~2022-04-22] VITALS: Ht 167.6 cm; Wt 108.9 kg
[~2022-04-22 12:20] MED LIST changes: -ACET500P3 PO; +ETON68IM SC; -NEXP1IMP SC; -VENL37TA PO
[2022-04-22] MEDS ORDERED: ACET500P3 PO (13:01)
[2022-04-22] MEDS ORDERED: HOME MED LIST COMPLETE! XX SCH ×2 (13:05→13:20)
[2022-04-22] MEDS ORDERED: diphenhydrAMINE 50MG/ML VIAL (J1200) IM ONE (13:10)
[2022-04-22] MEDS ORDERED: VENL37TA PO (13:15)
[2022-04-22] MEDS ORDERED: METOCLOPRAMIDE 10MG TAB PO ONE (14:00)
[2022-04-22 15:33] LABS: HEMATOCRIT 34.5 % (36.0-47.0); HEMOGLOBIN 11.4 g/dl (12.0-15.5); MEAN CORPUSCULAR HEMOGLOBIN 29.8 pg (27.0-33.0); MEAN CORPUSCULAR VOLUME 90.3 fl (80.0-96.0); PLATELET COUNT, AUTOMATED 206 10^3/uL (150-450); RED BLOOD COUNT 3.82 10^6/uL (4.00-5.40); WHITE BLOOD COUNT 6.6 10^3/uL (4.0-10.0)
[2022-04-22 15:50] LABS: CREATININE,RANDOM URINE 30.1 MG/DL
[2022-04-22 15:51] LABS: ALT/SGPT 16 U/L (12-78); BILIRUBIN,TOTAL 0.2 MG/DL (0.2-1.0); CREATININE FOR GFR 0.52 MG/DL (0.55-1.30); GLOMERULAR FILTRATION RATE > 60.0 (>60); LDH LACTATE DEHYDROGENASE 106 U/L (84-246)
[2022-04-22] MEDS ORDERED: MAG Sulf (L&D) 4 GM/100 ML 4 GM in IV 1 EA IV ONE (16:40)
[2022-04-22] MEDS ORDERED: TRANEXAMIC ACID INJection 1,000 MG in NS 100 ML IV PRN (16:40)
[2022-04-22] MEDS ORDERED: CARBOPROST TROMETHAMINE 250 MCG/ML AMP IM PRN (16:40)
[2022-04-22] MEDS ORDERED: miSOPROStol 50MCG 1/2 TABLET PO ONE ×2 (16:40→23:00)
[2022-04-22] MEDS ORDERED: OXYTOCIN DRIP 30 UNITS in IV 1 EA IV PRN ×4 (16:40)
[2022-04-22] MEDS: BETAMETHASONE SOLUSPAN 6MG/ML 5ML VIAL (J0702 PER 3MG) IM SCH (16:56)
[2022-04-22] MEDS: MAG Sulf (OBGYN) 20GM/500ML 20,000 MG in IV 1 EA IV SCH (17:21)
[2022-04-22] MEDS: LR 1,000 ML IV SCH (17:52)
[2022-04-23] VITALS (78 sets, daily range): BP systolic 88–155; BP diastolic 42–86
[2022-04-23] MEDS ORDERED: miSOPROStol 50MCG 1/2 TABLET PO ONE (02:30)
[2022-04-23] MEDS: MAG Sulf (OBGYN) 20GM/500ML 20,000 MG in IV 1 EA IV SCH ×3 (02:58→22:32)
[2022-04-23] MEDS: LR 1,000 ML IV SCH ×4 (03:16→21:18)
[2022-04-23] MEDS ORDERED: ONDANSETRON 4MG 2ML VIAL As Ordered ONE (04:21)
[2022-04-23] MEDS ORDERED: PENICILLIN G POTASSIUM IV 5 MU in D5W MINI-BAG PLUS 100 ML IV STA (08:00)
[2022-04-23] MEDS ORDERED: OXYTOCIN DRIP 30 UNITS in IV 1 EA IV SCH ×5 (08:00→21:30)
[2022-04-23] MEDS ORDERED: PENICILLIN G POTASSIUM IV 2.5 MU in IV 1 EA IV SCH (12:00)
[2022-04-23 14:56] LABS: HEMOGLOBIN 11.8 g/dl (12.0-15.5); MEAN CORPUSCULAR HEMOGLOBIN 29.3 pg (27.0-33.0); MEAN CORPUSCULAR HGB CONC 33.7 g/dl (32.0-36.5); MEAN CORPUSCULAR VOLUME 86.8 fl (80.0-96.0); PLATELET COUNT, AUTOMATED 223 10^3/uL (150-450); RED BLOOD COUNT 4.03 10^6/uL (4.00-5.40); WHITE BLOOD COUNT 11.2 10^3/uL (4.0-10.0)
[2022-04-23] MEDS ORDERED: NALOXONE INJ 0.4MG/1ML VIAL (J2310 PER 1MG) IV PRN (15:15)
[2022-04-23] MEDS ORDERED: FENTANYL/ROPIVACAINE/NACL BAG 100 ML EPIDURAL SCH (15:15)
[2022-04-23] MEDS ORDERED: LACTATED RINGER'S 1000 ML IV PRN (15:15)
[2022-04-23] MEDS ORDERED: REFRIGERATOR IV KEYS XX PRN (15:15)
[2022-04-23] MEDS ORDERED: ONDANSETRON 4MG 2ML VIAL IV PRN (15:15)
[2022-04-23] MEDS ORDERED: EPIDURAL/PCA KEYS XX PRN (15:15)
[2022-04-23] MEDS ORDERED: EPIDURAL COMMENT XX SCH (15:15)
[2022-04-23] MEDS ORDERED: diphenhydrAMINE 50MG/ML VIAL (J1200) IV PRN (15:15)
[2022-04-23] MEDS ORDERED: FENTANYL 2MCG/ML ROPIVACAINE 0.2% IN 0.9% NACL 100ML IVBAG As Ordered ONE (15:19)
[2022-04-23] MEDS: BETAMETHASONE SOLUSPAN 6MG/ML 5ML VIAL (J0702 PER 3MG) IM SCH (16:36)
[2022-04-23] MEDS: ePHEDrine SULFATE 25 MG/5 ML(5MG/ML) SYRINGE IV PRN ×3 (18:51→19:16)
[2022-04-23] MEDS ORDERED: DIBUCAINE 1% OINTMENT 30GM TOP PRN (21:30)
[2022-04-23] MEDS ORDERED: ACETAMINOPHEN TAB 650MG DOSE (2X325MG) PO PRN (21:30)
[2022-04-23] MEDS ORDERED: IBUPROFEN 600MG TAB PO PRN (21:30)
[2022-04-23] MEDS ORDERED: RHOGAM 300 MCG (1500 IU) INJ (J2790) IM SCH (21:30)
[2022-04-23] MEDS ORDERED: OXYTOCIN 30 UNITS IN 0.9% NaCl 500ML IV BAG (J2590) As Ordered ONE (21:31)
[2022-04-23] MEDS: IBUPROFEN 800 MG TAB PO PRN (22:31)
[2022-04-24] VITALS (22 sets, daily range): BP systolic 101–149; BP diastolic 52–78
[2022-04-24] MEDS: ACETAMINOPHEN 500 MG TAB PO PRN ×3 (00:31→22:56)
[2022-04-24] MEDS: IBUPROFEN 800 MG TAB PO PRN ×2 (07:45→17:35)
[2022-04-24] MEDS: PRENATAL VITAMINS CHEWABLE TABLET PO SCH (08:44)
[2022-04-24] MEDS: MAG Sulf (OBGYN) 20GM/500ML 20,000 MG in IV 1 EA IV SCH ×2 (08:45→18:40)
[2022-04-24] MEDS: VENLAFAXINE **XR** 37.5 MG CAPSULE PO SCH (11:36)
[2022-04-24] MEDS: LR 1,000 ML IV SCH (12:33)
[2022-04-24] MEDS: DOCUSATE SODIUM 100MG CAPSULE PO PRN (22:52)
[2022-04-25] MEDS: IBUPROFEN 800 MG TAB PO PRN (00:28)
[2022-04-25 02:15] VITALS: BP 94/50
[2022-04-25 06:00] VITALS: BP 112/57
[2022-04-25] MEDS: PRENATAL VITAMINS CHEWABLE TABLET PO SCH (08:50)
[2022-04-25] MEDS: VENLAFAXINE **XR** 37.5 MG CAPSULE PO SCH (09:00)
[2022-04-25] MEDS ORDERED: MEASLES,MUMPS,RUBELLA VACCINE INJ (MMR-II) (90707) SC.IMMUN ONE (09:00)
[2022-04-25 10:00] VITALS: BP 120/57
[2022-04-25] MEDS: LR 1,000 ML IV SCH (12:10)
[2022-04-25 14:00] VITALS: BP 118/56
[2022-04-25 18:00] VITALS: BP 125/65
[2022-04-25 22:27] VITALS: BP 118/56
[2022-04-25] MEDS: DOCUSATE SODIUM 100MG CAPSULE PO PRN (22:46)
[2022-04-26] MEDS: IBUPROFEN 800 MG TAB PO PRN ×2 (00:24→08:43)
[2022-04-26 02:00] VITALS: BP 123/67
[2022-04-26 06:00] VITALS: BP 111/55
[2022-04-26] MEDS: VENLAFAXINE **XR** 37.5 MG CAPSULE PO SCH (08:42)
[2022-04-26] MEDS: PRENATAL VITAMINS CHEWABLE TABLET PO SCH (08:42)
[2022-04-26 10:00] VITALS: BP 116/57
[2022-04-26] MEDS ORDERED: IBUP80TA PO (10:23)
== END 2022-04-26 11:14 | disposition home or self-care (01) | DRG 560 ==
LOC: M LDO 12:20 → M LDI 16:20 → M OBS 04-24 21:24
PROVIDERS: ADMIT Obstetrics & Gynecology; ATTEND Obstetrics & Gynecology
PROC: 3E0P7GC Introduction of Other Therapeutic Substance into Female Reproductive, Via Natural or Artificial Opening (ICD-10-PCS; 2022-04-22)
PROC: 10E0XZZ Delivery of Products of Conception, External Approach (ICD-10-PCS; principal; 2022-04-23)
DX: O14.14 Severe pre-eclampsia complicating childbirth (principal); Z3A.35 35 weeks gestation of pregnancy; Z37.0 Single live birth

== ENCOUNTER → 2022-09-15 | Outpatient (CLI) | payer OTHER, MEDICAID ==
[~2022-09-15] MED LIST changes: +ACET500P3 PO; +VENL37TA PO
[2022-09-15 20:18] LABS: ALBUMIN 3.6 GM/DL (3.2-5.2); ALT/SGPT 30 U/L (12-78); BILIRUBIN,TOTAL 0.4 MG/DL (0.2-1.0); BLOOD UREA NITROGEN 14 MG/DL (7-18); CALCIUM LEVEL 9.2 MG/DL (8.5-10.1); CARBON DIOXIDE LEVEL 27 MEQ/L (21-32); CHLORIDE LEVEL 104 MEQ/L (98-107); CREATININE FOR GFR 0.68 MG/DL (0.55-1.30); GLOMERULAR FILTRATION RATE > 60.0 (>60); GLUCOSE, FASTING 86 MG/DL (70-100); POTASSIUM SERUM 4.2 MEQ/L (3.5-5.1); SODIUM LEVEL 138 MEQ/L (136-145); TOTAL PROTEIN 7.1 GM/DL (6.4-8.2)
[2022-09-15 23:03] LABS: HEMOGLOBIN A1c 5.2 %
== END ==
LOC: M PLALAB 15:22
PROVIDERS: ATTEND Student in an Organized Health Care Education/Training Program
DX: R73.01 Impaired fasting glucose (principal)

== ENCOUNTER → 2022-09-15 | Outpatient (CLI) | payer OTHER, MEDICAID ==
[2022-09-15 18:07] LABS: BASO % 0.5 % (0.0-1.0); EOS % 0.6 % (0.0-3.0); HEMATOCRIT 40.4 % (36.0-47.0); HEMOGLOBIN 13.5 g/dl (12.0-15.5); LYMPH # 2.4 10^3/uL (1.5-5.0); LYMPH % 36.9 % (24.0-44.0); MEAN CORPUSCULAR HEMOGLOBIN 30.8 pg (27.0-33.0); MEAN CORPUSCULAR HGB CONC 33.4 g/dl (32.0-36.5); MONO # 0.6 10^3/uL (0.0-0.8); MONO % 9.1 % (2.0-8.0); NEUTROPHILS # 3.3 10^3/uL (1.5-8.5); NEUTROPHILS % 52.6 % (36.0-66.0); PLATELET COUNT, AUTOMATED 260 10^3/uL (150-450); RED BLOOD COUNT 4.39 10^6/uL (4.00-5.40); WHITE BLOOD COUNT 6.4 10^3/uL (4.0-10.0)
[2022-09-15 19:11] LABS: ERYTHROCYTE SEDIMENTATION RATE 21 mm/hr (0-20)
[2022-09-15 19:56] LABS: ALBUMIN 3.5 GM/DL (3.2-5.2); ALT/SGPT 26 U/L (12-78); BILIRUBIN,TOTAL 0.3 MG/DL (0.2-1.0); BLOOD UREA NITROGEN 15 MG/DL (7-18); CALCIUM LEVEL 9.1 MG/DL (8.5-10.1); CARBON DIOXIDE LEVEL 26 MEQ/L (21-32); CHLORIDE LEVEL 104 MEQ/L (98-107); CREATININE FOR GFR 0.66 MG/DL (0.55-1.30); GLOMERULAR FILTRATION RATE > 60.0 (>60); GLUCOSE, FASTING 86 MG/DL (70-100); POTASSIUM SERUM 4.2 MEQ/L (3.5-5.1); RHEUMATOID FACTOR QUANT < 10.0 IU/ML (<15.0); SODIUM LEVEL 139 MEQ/L (136-145); THYROXINE (T4) 9.3 UG/DL (4.5-12.0); TOTAL PROTEIN 7.2 GM/DL (6.4-8.2)
[2022-09-15 20:40] LABS: THYROGLOBULIN ANTIBODY < 15.0 U/ML (<60.0); THYROID PEROXIDASE ANTIBODY < 28.0 U/ML (<60.0); TOTAL T3 96.8 NG/DL (60.0-181.0)
== END ==
LOC: M PLALAB 15:20
PROVIDERS: ATTEND Allergy & Immunology Allergy
DX: L50.1 Idiopathic urticaria (principal); T78.1XXA Other adverse food reactions, not elsewhere classified, initial encounter

== ENCOUNTER → 2022-09-23 | Outpatient (CLI) | payer OTHER, MEDICAID | LOC: M PLALAB 14:38 | PROVIDERS: ATTEND Student in an Organized Health Care Education/Training Program | DX: R63.5 Abnormal weight gain (principal); Z53.9 Procedure and treatment not carried out, unspecified reason ==

== ENCOUNTER → 2022-12-08 | Outpatient (REF) | payer OTHER, MEDICAID | LOC: M SFHCWAGY 16:52 | PROVIDERS: ATTEND Advanced Practice Midwife | DX: Z12.4 Encounter for screening for malignant neoplasm of cervix (principal) ==

== ENCOUNTER → 2023-04-22 | Outpatient (CLI) | payer OTHER, MEDICAID | LOC: M LAB 17:17 | PROVIDERS: ATTEND Advanced Practice Midwife | DX: Z34.90 Encounter for supervision of normal pregnancy, unspecified, unspecified trimester (principal) ==

== ENCOUNTER → 2023-05-18 | Outpatient (CLI) | payer OTHER, MEDICAID | LOC: M LAB 17:25 | PROVIDERS: ATTEND Advanced Practice Midwife | DX: Z87.59 Personal history of other complications of pregnancy, childbirth and the puerperium (principal) ==

== ENCOUNTER → 2023-05-20 | Outpatient (CLI) | payer OTHER, MEDICAID | LOC: M LAB 13:00 | PROVIDERS: ATTEND Advanced Practice Midwife | DX: Z87.59 Personal history of other complications of pregnancy, childbirth and the puerperium (principal) ==

== ENCOUNTER → 2023-06-15 | Outpatient (CLI) | payer OTHER, MEDICAID ==
[2023-06-15 17:35] LABS: HEMATOCRIT 39.2 % (36.0-47.0); HEMOGLOBIN 13.4 g/dl (12.0-15.5); MEAN CORPUSCULAR HEMOGLOBIN 31.1 pg (27.0-33.0); MEAN CORPUSCULAR HGB CONC 34.2 g/dl (32.0-36.5); PLATELET COUNT, AUTOMATED 255 10^3/uL (150-450); RED BLOOD COUNT 4.31 10^6/uL (4.00-5.40); WHITE BLOOD COUNT 7.7 10^3/uL (4.0-10.0)
[2023-06-15 18:32] LABS: HIV 1&2 SCREEN NEGATIVE (NEGATIVE)
[2023-06-15 18:41] LABS: HEPATITIS C VIRUS ABY INDEX 0.17 INDEX (<0.8)
== END ==
LOC: M PLALAB 14:32
PROVIDERS: ATTEND Advanced Practice Midwife
DX: Z34.81 Encounter for supervision of other normal pregnancy, first trimester (principal)

== ENCOUNTER → 2023-06-15 | Outpatient (CLI) | payer OTHER, MEDICAID | LOC: M PLALAB 14:35 | PROVIDERS: ATTEND Advanced Practice Midwife | DX: Z34.81 Encounter for supervision of other normal pregnancy, first trimester (principal) ==

== ENCOUNTER → 2023-06-30 | Outpatient (CLI) | payer OTHER, MEDICAID ==
[2023-06-30 14:20] LABS: URIC ACID 4.3 MG/DL (3.1-7.8)
[2023-06-30 14:21] LABS: LDH LACTATE DEHYDROGENASE 119 U/L (120-246)
[2023-06-30 14:22] LABS: ALT/SGPT 20 U/L (7.0-40); AST/SGOT 12 U/L (<34); BILIRUBIN,TOTAL 0.5 MG/DL (0.3-1.2); CREATININE FOR GFR 0.55 MG/DL (0.55-1.30); GLOMERULAR FILTRATION RATE > 60.0 (>60)
== END ==
LOC: M PLALAB 10:01
PROVIDERS: ATTEND Advanced Practice Midwife
DX: Z34.83 Encounter for supervision of other normal pregnancy, third trimester (principal)

== ENCOUNTER → 2023-08-31 | Outpatient (REF) | payer OTHER, MEDICAID ==
[2023-09-01 00:45] LABS: TOTAL PROTEIN,RANDOM URINE 10.1 MG/DL (0.0-14.0)
[2023-09-01 00:48] LABS: CREATININE,RANDOM URINE 104.9 MG/DL
== END ==
LOC: M SFHCWAGY 13:11
PROVIDERS: ATTEND Advanced Practice Midwife
DX: Z36.89 Encounter for other specified antenatal screening (principal); Z3A.00 Weeks of gestation of pregnancy not specified

== ENCOUNTER → 2023-09-17 | Outpatient (CLI) | payer OTHER, MEDICAID | LOC: M WHC 11:11 | PROVIDERS: ATTEND Obstetrics & Gynecology | DX: Z36.2 Encounter for other antenatal screening follow-up (principal); Z3A.24 24 weeks gestation of pregnancy ==

== ENCOUNTER → 2023-09-29 | Outpatient (CLI) | payer OTHER, MEDICAID ==
[2023-09-29 16:32] LABS: HEMATOCRIT 36.6 % (36.0-47.0); HEMOGLOBIN 12.1 g/dl (12.0-15.5); MEAN CORPUSCULAR HEMOGLOBIN 31.3 pg (27.0-33.0); MEAN CORPUSCULAR HGB CONC 33.1 g/dl (32.0-36.5); MEAN CORPUSCULAR VOLUME 94.8 fl (80.0-96.0); PLATELET COUNT, AUTOMATED 219 10^3/uL (150-450); RED BLOOD COUNT 3.86 10^6/uL (4.00-5.40); WHITE BLOOD COUNT 6.6 10^3/uL (4.0-10.0)
[2023-09-29 17:50] LABS: CHLAMYDIA DNA AMPLIFICATION NEGATIVE (NEGATIVE); GC DNA AMPLIFICATION NEGATIVE (NEGATIVE)
== END ==
LOC: M PLALAB 12:42
PROVIDERS: ATTEND Obstetrics & Gynecology
DX: Z34.82 Encounter for supervision of other normal pregnancy, second trimester (principal)

== ENCOUNTER → 2023-10-09 | Outpatient (CLI) | payer OTHER, MEDICAID | LOC: M WHC 11:07 | PROVIDERS: ATTEND Specialist | DX: Z34.83 Encounter for supervision of other normal pregnancy, third trimester (principal) ==

== ENCOUNTER → 2023-10-19 | Outpatient (CLI) | payer OTHER, MEDICAID ==
[2023-10-19 18:32] LABS: HEMATOCRIT 35.9 % (36.0-47.0); HEMOGLOBIN 12.1 g/dl (12.0-15.5); MEAN CORPUSCULAR HEMOGLOBIN 31.5 pg (27.0-33.0); MEAN CORPUSCULAR HGB CONC 33.7 g/dl (32.0-36.5); MEAN CORPUSCULAR VOLUME 93.5 fl (80.0-96.0); PLATELET COUNT, AUTOMATED 231 10^3/uL (150-450); RED BLOOD COUNT 3.84 10^6/uL (4.00-5.40); WHITE BLOOD COUNT 7.1 10^3/uL (4.0-10.0)
[2023-10-19 18:42] LABS: TOTAL PROTEIN,RANDOM URINE 10.4 MG/DL (0.0-14.0)
[2023-10-19 18:46] LABS: CREATININE,RANDOM URINE 68.7 MG/DL
[2023-10-19 18:51] LABS: URIC ACID 4.6 MG/DL (3.1-7.8)
[2023-10-19 18:53] LABS: LDH LACTATE DEHYDROGENASE 133 U/L (120-246)
[2023-10-19 18:54] LABS: ALT/SGPT 12 U/L (7.0-40); AST/SGOT 8 U/L (<34); BILIRUBIN,TOTAL 0.2 MG/DL (0.3-1.2); CREATININE FOR GFR 0.58 MG/DL (0.55-1.30); GLOMERULAR FILTRATION RATE > 60.0 (>60)
== END ==
LOC: M PLALAB 15:21
PROVIDERS: ATTEND Advanced Practice Midwife
DX: O16.3 Unspecified maternal hypertension, third trimester (principal); Z3A.00 Weeks of gestation of pregnancy not specified

== ENCOUNTER → 2023-10-30 | Outpatient (CLI) | payer OTHER, MEDICAID ==
[2023-10-30 17:22] LABS: TOTAL PROTEIN,RANDOM URINE 22.1 MG/DL (0.0-14.0)
[2023-10-30 17:25] LABS: URIC ACID 4.4 MG/DL (3.1-7.8)
[2023-10-30 17:27] LABS: CREATININE,RANDOM URINE 147.3 MG/DL; LDH LACTATE DEHYDROGENASE 130 U/L (120-246)
[2023-10-30 17:28] LABS: ALT/SGPT 14 U/L (7.0-40); AST/SGOT 10 U/L (<34); BILIRUBIN,TOTAL 0.4 MG/DL (0.3-1.2); CREATININE FOR GFR 0.44 MG/DL (0.55-1.30); GLOMERULAR FILTRATION RATE > 60.0 (>60)
[2023-10-30 18:00] LABS: HEMATOCRIT 35.7 % (36.0-47.0); HEMOGLOBIN 11.8 g/dl (12.0-15.5); MEAN CORPUSCULAR HEMOGLOBIN 30.9 pg (27.0-33.0); MEAN CORPUSCULAR HGB CONC 33.1 g/dl (32.0-36.5); MEAN CORPUSCULAR VOLUME 93.5 fl (80.0-96.0); PLATELET COUNT, AUTOMATED 236 10^3/uL (150-450); RED BLOOD COUNT 3.82 10^6/uL (4.00-5.40); WHITE BLOOD COUNT 7.4 10^3/uL (4.0-10.0)
== END ==
LOC: M PLALAB 12:45
PROVIDERS: ATTEND Advanced Practice Midwife
DX: O16.3 Unspecified maternal hypertension, third trimester (principal); Z3A.00 Weeks of gestation of pregnancy not specified

== ENCOUNTER 2023-11-13 19:01 | Outpatient (CLI) | payer OTHER, MEDICAID ==
[2023-11-13] MEDS ORDERED: LR 1,000 ML IV ONE (19:15)
[2023-11-13] MEDS ORDERED: ONDANSETRON 4MG 2ML VIAL IV ONE (19:15)
[2023-11-13 20:04] LABS: HEMATOCRIT 37.3 % (36.0-47.0); HEMOGLOBIN 12.6 g/dl (12.0-15.5); MEAN CORPUSCULAR HEMOGLOBIN 30.7 pg (27.0-33.0); MEAN CORPUSCULAR HGB CONC 33.8 g/dl (32.0-36.5); PLATELET COUNT, AUTOMATED 216 10^3/uL (150-450); WHITE BLOOD COUNT 8.9 10^3/uL (4.0-10.0)
[2023-11-13 20:18] LABS: URIC ACID 5.6 MG/DL (3.1-7.8)
[2023-11-13 20:20] LABS: LDH LACTATE DEHYDROGENASE 148 U/L (120-246)
[2023-11-13 20:21] LABS: ALT/SGPT 11 U/L (7.0-40); AST/SGOT 12 U/L (<34); BILIRUBIN,TOTAL 0.4 MG/DL (0.3-1.2); CREATININE FOR GFR 0.44 MG/DL (0.55-1.30); GLOMERULAR FILTRATION RATE > 60.0 (>60)
[2023-11-13 20:21] LABS: CREATININE,RANDOM URINE 219.7 MG/DL
== END 2023-11-13 20:35 | disposition home or self-care (01) ==
LOC: M LDO 19:01
PROVIDERS: ATTEND Advanced Practice Midwife
DX: O26.893 Other specified pregnancy related conditions, third trimester (principal); R10.11 Right upper quadrant pain; O21.8 Other vomiting complicating pregnancy; O99.343 Other mental disorders complicating pregnancy, third trimester; F41.8 Other specified anxiety disorders; Z87.59 Personal history of other complications of pregnancy, childbirth and the puerperium; Z3A.32 32 weeks gestation of pregnancy
CPT/HCPCS: 59025; 82247; 82570; 83615; 84156; 84450; 84460; 84550; 85027; 96374; G0463; J2405

== ENCOUNTER → 2023-11-26 | Outpatient (CLI) | payer OTHER, MEDICAID ==
[2023-11-26 15:53] LABS: HEMATOCRIT 35.8 % (36.0-47.0); HEMOGLOBIN 11.9 g/dl (12.0-15.5); LDH LACTATE DEHYDROGENASE 148 U/L (120-246); MEAN CORPUSCULAR HEMOGLOBIN 30.1 pg (27.0-33.0); MEAN CORPUSCULAR HGB CONC 33.2 g/dl (32.0-36.5); MEAN CORPUSCULAR VOLUME 90.4 fl (80.0-96.0); PLATELET COUNT, AUTOMATED 254 10^3/uL (150-450); RED BLOOD COUNT 3.96 10^6/uL (4.00-5.40)
[2023-11-26 15:54] LABS: ALT/SGPT 18 U/L (7.0-40); AST/SGOT 15 U/L (<34); BILIRUBIN,TOTAL 0.4 MG/DL (0.3-1.2); CREATININE FOR GFR 0.53 MG/DL (0.55-1.30); GLOMERULAR FILTRATION RATE > 60.0 (>60)
[2023-11-26 15:55] LABS: URIC ACID 5.4 MG/DL (3.1-7.8)
[2023-11-26 16:15] LABS: TOTAL PROTEIN,RANDOM URINE 12.7 MG/DL (0.0-14.0)
[2023-11-26 16:20] LABS: CREATININE,RANDOM URINE 81.3 MG/DL
== END ==
LOC: M PLALAB 13:41
PROVIDERS: ATTEND Advanced Practice Midwife
DX: O10.013 Pre-existing essential hypertension complicating pregnancy, third trimester (principal); Z3A.00 Weeks of gestation of pregnancy not specified

== ENCOUNTER 2023-11-28 17:41 | Outpatient (CLI) | payer OTHER, MEDICAID ==
[~2023-11-28] VITALS: Ht 167.6 cm; Wt 133.1 kg
[2023-11-28] MEDS ORDERED: LABE200T5 PO (18:08)
[2023-11-28] MEDS ORDERED: ASPI81CH33 PO (18:08)
[2023-11-28] MEDS ORDERED: EFFE37.52 PO (18:08)
[2023-11-28 18:10] VITALS: BP 131/75
[2023-11-28] MEDS ORDERED: HOME MED LIST COMPLETE! XX SCH (18:10)
[2023-11-28] MEDS ORDERED: FIORICET TAB PO ONE (18:30)
[2023-11-28 18:33] VITALS: BP 116/75
[2023-11-28 18:41] VITALS: BP 115/56
[2023-11-28 19:03] LABS: TOTAL PROTEIN,RANDOM URINE 12.2 MG/DL (0.0-14.0)
[2023-11-28 19:08] LABS: CREATININE,RANDOM URINE 56.1 MG/DL
[2023-11-28 19:59] VITALS: BP 118/55
[2023-11-28 21:49] VITALS: BP 124/81
== END 2023-11-28 22:00 | disposition home or self-care (01) ==
LOC: M LDO 17:41
PROVIDERS: ATTEND Obstetrics & Gynecology
DX: O26.893 Other specified pregnancy related conditions, third trimester (principal); R51.9 Headache, unspecified; O10.013 Pre-existing essential hypertension complicating pregnancy, third trimester; Z87.59 Personal history of other complications of pregnancy, childbirth and the puerperium; Z3A.34 34 weeks gestation of pregnancy
CPT/HCPCS: 59025; 82570; 84156; 87486; 87581; 87633; 87798; G0463

== ENCOUNTER → 2023-12-02 | Outpatient (REF) | payer OTHER, MEDICAID ==
[~2023-12-02] MED LIST changes: +ASPI81CH33 PO; +EFFE37.52 PO; +LABE200T5 PO
== END ==
LOC: M PLALAB 10:35
PROVIDERS: ATTEND Advanced Practice Midwife
DX: O10.013 Pre-existing essential hypertension complicating pregnancy, third trimester (principal)

== ENCOUNTER → 2023-12-03 | Outpatient (CLI) | payer OTHER, MEDICAID | LOC: M WHC 13:02 | PROVIDERS: ATTEND Advanced Practice Midwife | DX: O10.013 Pre-existing essential hypertension complicating pregnancy, third trimester (principal); Z3A.36 36 weeks gestation of pregnancy ==

== ENCOUNTER 2023-12-14 08:14 | Inpatient (IN) | payer OTHER, MEDICAID ==
[~2023-12-14] VITALS: Ht 167.6 cm; Wt 114.8 kg
[2023-12-14] VITALS (28 sets, daily range): BP systolic 110–142; BP diastolic 55–80
[2023-12-14] MEDS ORDERED: COLA100C5 PO (08:39)
[2023-12-14] MEDS ORDERED: METHYLERGONOVINE MALEATE 0.2MG/ML 1ML VIAL IM PRN (08:50)
[2023-12-14] MEDS ORDERED: LIDOCAINE 1% MDV 20ML VIAL INFIL PRN (08:50)
[2023-12-14] MEDS ORDERED: OXYTOCIN INJ 10UNITS/ML 1ML VIAL IM PRN (08:50)
[2023-12-14 09:17] LABS: HEMATOCRIT 33.8 % (36.0-47.0); HEMOGLOBIN 11.2 g/dl (12.0-15.5); MEAN CORPUSCULAR HEMOGLOBIN 29.7 pg (27.0-33.0); MEAN CORPUSCULAR HGB CONC 33.1 g/dl (32.0-36.5); MEAN CORPUSCULAR VOLUME 89.7 fl (80.0-96.0); PLATELET COUNT, AUTOMATED 182 10^3/uL (150-450); RED BLOOD COUNT 3.77 10^6/uL (4.00-5.40); WHITE BLOOD COUNT 6.5 10^3/uL (4.0-10.0)
[2023-12-14 09:39] LABS: TOTAL PROTEIN,RANDOM URINE 11.3 MG/DL (0.0-14.0)
[2023-12-14 09:41] LABS: URIC ACID 5.8 MG/DL (3.1-7.8)
[2023-12-14 09:43] LABS: LDH LACTATE DEHYDROGENASE 161 U/L (120-246)
[2023-12-14 09:44] LABS: ALT/SGPT 10 U/L (7.0-40); AST/SGOT 12 U/L (<34); BILIRUBIN,TOTAL 0.3 MG/DL (0.3-1.2); CREATININE FOR GFR 0.47 MG/DL (0.55-1.30); CREATININE,RANDOM URINE 62.5 MG/DL; GLOMERULAR FILTRATION RATE > 60.0 (>60)
[2023-12-14] MEDS: miSOPROStol 50MCG 1/2 TABLET PO SCH (09:56)
[2023-12-14] MEDS: LACTATED RINGER'S 1000 ML IV STA (21:39)
[2023-12-14] MEDS ORDERED: LR 500 ML IV PRN (22:00)
[2023-12-14] MEDS ORDERED: EPIDURAL/PCA KEYS XX PRN (22:00)
[2023-12-14] MEDS ORDERED: NALOXONE INJ 0.4MG/1ML VIAL IV PRN (22:00)
[2023-12-14] MEDS ORDERED: ePHEDrine SULFATE 25 MG/5 ML(5MG/ML) SYRINGE IVP PRN (22:00)
[2023-12-14] MEDS ORDERED: diphenhydrAMINE 50MG/ML VIAL IV PRN (22:00)
[2023-12-14] MEDS: LR 1,000 ML IV SCH (22:56)
[2023-12-14] MEDS: FENTANYL/ROPIVACAINE/NACL BAG 100 ML EPIDURAL SCH (22:57)
[2023-12-15] VITALS (52 sets, daily range): BP systolic 85–168; BP diastolic 46–89; O2SAT 97–98
[2023-12-15] MEDS: OXYTOCIN DRIP 30 UNITS in IV 1 EA IV SCH ×2 (00:07→10:10)
[2023-12-15] MEDS: ONDANSETRON 4MG 2ML VIAL IV PRN (02:58)
[2023-12-15] MEDS: OXYTOCIN DRIP 30 UNITS in IV 1 EA IV PRN (09:47)
[2023-12-15] MEDS: TRANEXAMIC ACID INJection 1,000 MG in NS 100 ML IV PRN (10:06)
[2023-12-15] MEDS ORDERED: RHOGAM 300MCG (1500IU) INJ IM SCH (10:10)
[2023-12-15] MEDS ORDERED: METHYLERGONOVINE MALEATE 0.2 MG TAB PO PRN (10:10)
[2023-12-15] MEDS ORDERED: DIBUCAINE 1% OINTMENT 30GM TOP PRN (10:10)
[2023-12-15] MEDS ORDERED: VENL75TA2 PO (10:12)
[2023-12-15] MEDS ORDERED: VENL75CA47 PO (10:45)
[2023-12-15] MEDS ORDERED: MORPHINE 2 MG/ML 1ML VIAL As Ordered ONE (11:18)
[2023-12-15] MEDS: MORPHINE 2 MG/ML 1ML VIAL IV ONE (11:27)
[2023-12-15 11:54] LABS: HEMATOCRIT 30.8 % (36.0-47.0); HEMOGLOBIN 10.2 g/dl (12.0-15.5); MEAN CORPUSCULAR HGB CONC 33.1 g/dl (32.0-36.5); MEAN CORPUSCULAR VOLUME 90.6 fl (80.0-96.0); PLATELET COUNT, AUTOMATED 187 10^3/uL (150-450)
[2023-12-15] MEDS: CARBOPROST TROMETHAMINE 250 MCG/ML AMP IM PRN (11:54)
[2023-12-15] MEDS: ceFAZolin SOD 2 GM in IV 1 EA IV ONE (11:55)
[2023-12-15 12:12] LABS: INR 1.1; PROTHROMBIN TIME 13.9 SECONDS (12.5-14.5)
[2023-12-15 12:13] LABS: PARTIAL THROMBOPLASTIN TIME 23.8 SECONDS (24.8-34.2)
[2023-12-15] MEDS: LOPERAMIDE 2 MG CAPLET PO ONE (12:21)
[2023-12-15] MEDS: ACETAMINOPHEN 500 MG TAB PO PRN (12:36)
[2023-12-15] MEDS: VENLAFAXINE **XR** 75MG CAPSULE PO SCH (14:20)
[2023-12-15] MEDS: IBUPROFEN 600MG TAB PO PRN (14:21)
[2023-12-15] MEDS: PRENATAL VITAMINS CHEWABLE TABLET PO SCH (17:19)
[2023-12-15] MEDS: oxyCODONE 5MG TAB PO ONE (17:34)
[2023-12-15] MEDS: DOCUSATE SODIUM 100MG CAPSULE PO PRN (17:34)
[2023-12-16 06:00] VITALS: BP 116/56
[2023-12-16 07:11] LABS: HEMATOCRIT 25.1 % (36.0-47.0); HEMOGLOBIN 8.3 g/dl (12.0-15.5); MEAN CORPUSCULAR HEMOGLOBIN 29.7 pg (27.0-33.0); MEAN CORPUSCULAR HGB CONC 33.1 g/dl (32.0-36.5); PLATELET COUNT, AUTOMATED 161 10^3/uL (150-450); RED BLOOD COUNT 2.79 10^6/uL (4.00-5.40); WHITE BLOOD COUNT 6.9 10^3/uL (4.0-10.0)
[2023-12-17] MEDS ORDERED: MEASLES,MUMPS,RUBELLA VACCINE INJ (MMR-II) SC.IMMUN ONE (09:00)
== END 2023-12-16 13:35 | disposition home or self-care (01) | DRG 560 ==
LOC: M LDI 08:14 → M OBS 12-15 15:05
PROVIDERS: ADMIT Advanced Practice Midwife; ATTEND Advanced Practice Midwife
PROC: 3E033VJ Introduction of Other Hormone into Peripheral Vein, Percutaneous Approach (ICD-10-PCS; 2023-12-14)
PROC: 10E0XZZ Delivery of Products of Conception, External Approach (ICD-10-PCS; principal; 2023-12-15)
PROC: 10907ZC Drainage of Amniotic Fluid, Therapeutic from Products of Conception, Via Natural or Artificial Opening (ICD-10-PCS; 2023-12-15)
DX: O10.92 Unspecified pre-existing hypertension complicating childbirth (principal); O69.82X0 Labor and delivery complicated by other cord entanglement, without compression, not applicable or unspecified; Z37.0 Single live birth; Z3A.37 37 weeks gestation of pregnancy

== ENCOUNTER 2024-06-24 09:16 | Day surgery (SDC) | payer OTHER, MEDICAID ==
[~2024-06-24] VITALS: Ht 165.1 cm; Wt 110.1 kg
[~2024-06-24 09:16] MED LIST changes: +ACETAMINOPHEN 1000MG 100ML IV BAG As Ordered ONE; +KETOROLAC 60MG 2ML VIAL As Ordered ONE; +LIDOCAINE 2% 100MG/5ML SDV (FOR ANES.) As Ordered ONE; +MIDAZOLAM INJ 2MG/2ML VIAL As Ordered ONE; +ONDANSETRON 4MG 2ML VIAL As Ordered ONE; +ROCURONIUM BROMIDE 50MG/5ML VIAL As Ordered ONE; +SUGAMMADEX SODIUM 500 MG/5 ML VIAL (BRIDION) As Ordered ONE; +VENL150C43 PO; +VENL75CA47 PO; +VENL75TA2 PO; +fentaNYL 100 MCG/2 ML INJECTION As Ordered ONE; +propofoL 200 MG/20 ML VIAL As Ordered ONE
[2024-06-24] MEDS ORDERED: LR 1,000 ML IV SCH ×2 (09:20→11:35)
[2024-06-24 09:55] LABS: HEMATOCRIT 42.7 % (36.0-47.0); HEMOGLOBIN 14.3 g/dl (12.0-15.5); MEAN CORPUSCULAR HEMOGLOBIN 31.2 pg (27.0-33.0); MEAN CORPUSCULAR HGB CONC 33.5 g/dl (32.0-36.5); PLATELET COUNT, AUTOMATED 275 10^3/uL (150-450); RED BLOOD COUNT 4.59 10^6/uL (4.00-5.40); WHITE BLOOD COUNT 6.2 10^3/uL (4.0-10.0)
[2024-06-24] MEDS: SCOPOLAMINE 1MG TRANSDERMAL PATCH TOP ONE (10:03)
[2024-06-24] MEDS ORDERED: METOCLOPRAMIDE INJ 10MG/2ML VIAL As Ordered ONE (10:20)
[2024-06-24] MEDS ORDERED: HYDROmorphone HCL 2MG/ML 1ML VIAL As Ordered ONE (10:50)
[2024-06-24] MEDS ORDERED: oxyCODONE 5MG TAB PO PRN (11:35)
[2024-06-24] MEDS ORDERED: fentaNYL 100 MCG/2 ML INJECTION IV PRN (11:35)
[2024-06-24] MEDS: HYDROMORPHONE HCL 0.5 MG/ 0.5 ML SYRINGE IV PRN (11:57)
[2024-06-24] MEDS: ONDANSETRON 4MG 2ML VIAL IV PRN (11:58)
[2024-06-24 14:17] VITALS: BP 120/70; TEMP 97.5; O2SAT 97
== END 2024-06-24 15:01 | disposition home or self-care (01) ==
LOC: M SDC 09:16
PROVIDERS: ATTEND Obstetrics & Gynecology
DX: Z30.2 Encounter for sterilization (principal); F41.1 Generalized anxiety disorder; F53.0 Postpartum depression; Z91.048 Other nonmedicinal substance allergy status; Z79.899 Other long term (current) drug therapy
CPT/HCPCS: 36415; 58661; 81025; 85027; 86850; 86900; 86901; 88302; J0131; J0665; J1100; J1170; J1885; J2250; J2405; J2765; J3010

== ENCOUNTER → 2025-01-24 | Outpatient (CLI) | payer OTHER ==
[~2025-01-24] MED LIST changes: -ACETAMINOPHEN 1000MG 100ML IV BAG As Ordered ONE; -KETOROLAC 60MG 2ML VIAL As Ordered ONE; -LIDOCAINE 2% 100MG/5ML SDV (FOR ANES.) As Ordered ONE; -MIDAZOLAM INJ 2MG/2ML VIAL As Ordered ONE; -ONDANSETRON 4MG 2ML VIAL As Ordered ONE; -ROCURONIUM BROMIDE 50MG/5ML VIAL As Ordered ONE; -SUGAMMADEX SODIUM 500 MG/5 ML VIAL (BRIDION) As Ordered ONE; -fentaNYL 100 MCG/2 ML INJECTION As Ordered ONE; -propofoL 200 MG/20 ML VIAL As Ordered ONE
[2025-01-24 15:09] LABS: HEMATOCRIT 41.2 % (36.0-47.0); HEMOGLOBIN 13.8 g/dl (12.0-15.5); MEAN CORPUSCULAR HEMOGLOBIN 30.5 pg (27.0-33.0); MEAN CORPUSCULAR HGB CONC 33.5 g/dl (32.0-36.5); MEAN CORPUSCULAR VOLUME 90.9 fl (80.0-96.0); PLATELET COUNT, AUTOMATED 258 10^3/uL (150-450); RED BLOOD COUNT 4.53 10^6/uL (4.00-5.40); WHITE BLOOD COUNT 5.9 10^3/uL (4.0-10.0)
[2025-01-24 15:19] LABS: FREE T4 1.03 NG/DL (0.89-1.76); PROLACTIN 1.77 NG/ML; THYROID STIMULATING HORMONE 1.416 uIU/ML (0.55-4.78)
[2025-01-24 15:22] LABS: INR 0.91; PARTIAL THROMBOPLASTIN TIME 26.5 SECONDS (24.8-34.2); PROTHROMBIN TIME 12.5 SECONDS (12.5-14.5)
[2025-01-24 19:58] LABS: Trichomonas vaginalis (AMP) NOT DETECTED (NEGATIVE)
[2025-01-24 20:22] LABS: GC DNA AMPLIFICATION NEGATIVE (NEGATIVE)
== END ==
LOC: M PLALAB 13:52
PROVIDERS: ATTEND Obstetrics & Gynecology
DX: N93.9 Abnormal uterine and vaginal bleeding, unspecified (principal)